=== PATIENT | male | born 2000 | race Caucasian/White ===

== ENCOUNTER 2018-09-06 20:06 | Emergency (ER) | payer OTHER ==
[~2018-09-06] VITALS: Ht 167.6 cm; Wt 70.3 kg
[2018-09-06 21:11] VITALS: BP 131/82
== END 2018-09-06 23:03 ==
LOC: ER 20:13
DX: S06.0X9A Concussion with loss of consciousness of unspecified duration, initial encounter (principal); S00.01XA Abrasion of scalp, initial encounter; F15.10 Other stimulant abuse, uncomplicated; Y04.0XXA Assault by unarmed brawl or fight, initial encounter; Y93.89 Activity, other specified; Y92.89 Other specified places as the place of occurrence of the external cause; Y99.8 Other external cause status
CPT/HCPCS: 70450-TC